=== PATIENT | female | born 1985 | race Caucasian/White ===

== ENCOUNTER 2017-09-11 21:28 | Emergency (ER) | payer OTHER ==
[~2017-09-11] VITALS: Ht 152.4 cm; Wt 57.1 kg
[2017-09-11 21:28] VITALS: Ht 152.4 cm; Wt 57.1 kg
[2017-09-11 22:52] VITALS: BP 139/79
== END 2017-09-11 22:52 | disposition home or self-care (01) ==
LOC: ED 21:28
DX: G47.00 Insomnia, unspecified (principal)
CPT/HCPCS: J1885